=== PATIENT | male | born 1975 | race Two or more races ===

== ENCOUNTER 2018-08-18 01:05 | Inpatient (IN) | payer BC ==
[~2018-08-18] VITALS: Ht 185.4 cm; Wt 106.1 kg
[2018-08-18 01:06] VITALS: Ht 185.4 cm; Wt 106.1 kg
[2018-08-18 01:52] LABS: BASOPHIL % 0.7 % (0-2); PLATELET COUNT 295 x10^3mcL (130-400); RED CELL DISTRIBUTION WIDTH 13.4 % (11.5-14.5)
[2018-08-18 02:01] LABS: CALCIUM 8.7 mg/dL (8.5-10.1); CHLORIDE SERUM 103 mmol/L (98-107); CREATININE SERUM 1.1 mg/dL (0.7-1.3); GFR1 > 60 mL/min; GLUCOSE SERUM 88 mg/dL (74-106); POTASSIUM SERUM 4.3 mmol/L (3.5-5.1); SODIUM SERUM 139 mmol/L (136-145)
[2018-08-18 02:05] LABS: ALBUMIN 3.7 g/dL (3.4-5.0); ALKALINE PHOSPHATASE 43 U/L (46-116); ALT/SGPT 55 U/L (16-63); AST/SGOT 38 U/L (15-37); BILIRUBIN TOTAL 0.31 mg/dL (0.20-1.00); LIPASE 279 IU/L (73-393); TOTAL PROTEIN, SERUM 7.2 g/dL (6.4-8.2)
[2018-08-18 03:31] LABS: microscopic required? NO
[2018-08-18 03:47] LABS: UA SPECIFIC GRAVITY 1.025 (1.005-1.035); urine erythrocyte NEGATIVE (NEGATIVE)
[2018-08-18] MEDS ORDERED: BREO ELLIPTA1 POW IH (05:00)
[2018-08-18] MEDS ORDERED: PROVENTIL0.09 MG/A1 (05:01)
[2018-08-18] MEDS ORDERED: ZANTAC 150150 MG PO (05:01)
[2018-08-18 05:38] VITALS: BP 130/88
[2018-08-18 05:44] LABS: MAGNESIUM 1.9 mg/dL (1.8-2.4); PHOSPHOROUS 2.7 mg/dL (2.5-4.9)
[2018-08-18 05:46] LABS: T3 TOTAL 0.95 ng/mL
[2018-08-18 05:49] LABS: CHOLESTEROL/HDL RATIO 5.8
[2018-08-18 05:51] VITALS: BP 135/88
[2018-08-18 05:57] LABS: FREE T4 1.06 ng/dL (0.76-1.46); FREE THYROXINE INDEX 2.8 ug/dL (1.4-4.5); T4(THYROXINE) 7.8 ug/dL (4.7-13.3)
[2018-08-18 09:07] VITALS: BP 122/91
[2018-08-18 11:31] LABS: AMPHETAMINE QUAL UR NONE DETECTED (See below)
[2018-08-18 13:15] VITALS: BP 134/76
[2018-08-18 16:45] VITALS: BP 130/77
[2018-08-18 20:28] VITALS: BP 124/86
[2018-08-19 04:12] VITALS: BP 124/86
[2018-08-19 05:35] VITALS: BP 146/79
[2018-08-19 06:39] LABS: CALCIUM 8.3 mg/dL (8.5-10.1); CARBON DIOXIDE 24.7 mmol/L (21-32); CHLORIDE SERUM 102 mmol/L (98-107); CREATININE SERUM 0.9 mg/dL (0.7-1.3); GFR1 > 60 mL/min; GLUCOSE SERUM 69 mg/dL (74-106); PHOSPHOROUS 3.6 mg/dL (2.5-4.9); POTASSIUM SERUM 4.2 mmol/L (3.5-5.1); SODIUM SERUM 139 mmol/L (136-145)
[2018-08-19 06:45] LABS: BASOPHIL % 0.4 % (0-2); PLATELET COUNT 230 x10^3mcL (130-400); RED CELL DISTRIBUTION WIDTH 13.4 % (11.5-14.5)
[2018-08-19 09:49] VITALS: BP 149/99
[2018-08-19] MEDS ORDERED: PREDNISONE20 MG PO (11:41)
[2018-08-19] MEDS ORDERED: PRE30 PO (11:41)
[2018-08-19 12:36] VITALS: BP 121/79
[2018-08-19 17:23] VITALS: BP 125/72
[2018-08-19 17:27] VITALS: BP 125/72
== END 2018-08-19 18:50 | disposition home or self-care (01) | DRG 393 ==
LOC: ED 01:05 → DU 04:49
PROVIDERS: Emergency Medicine; Family Medicine; Internal Medicine; ADMIT Internal Medicine
PROC: 0DBB8ZX Excision of Ileum, Via Natural or Artificial Opening Endoscopic, Diagnostic (ICD-10-PCS; 2018-08-19)
PROC: 0DB98ZX Excision of Duodenum, Via Natural or Artificial Opening Endoscopic, Diagnostic (ICD-10-PCS; principal; 2018-08-19 09:00)
PROC: 0DB68ZX Excision of Stomach, Via Natural or Artificial Opening Endoscopic, Diagnostic (ICD-10-PCS; 2018-08-19 09:00)
PROC: 0DBN8ZX Excision of Sigmoid Colon, Via Natural or Artificial Opening Endoscopic, Diagnostic (ICD-10-PCS; 2018-08-19 09:00)
DX: K63.5 Polyp of colon (principal); K29.81 Duodenitis with bleeding; K29.71 Gastritis, unspecified, with bleeding; M62.82 Rhabdomyolysis; K62.5 Hemorrhage of anus and rectum; K62.9 Disease of anus and rectum, unspecified; J45.909 Unspecified asthma, uncomplicated; K21.9 Gastro-esophageal reflux disease without esophagitis; F17.210 Nicotine dependence, cigarettes, uncomplicated; E78.5 Hyperlipidemia, unspecified; F19.10 Other psychoactive substance abuse, uncomplicated; K44.9 Diaphragmatic hernia without obstruction or gangrene; Z80.8 Family history of malignant neoplasm of other organs or systems
CPT/HCPCS: 43235; 45378; 83880; 84439; C9113; J0360; J1200; J1610; J2250; J2270; J2310; J2405; J3010; J3490; J7030; Q0092; Q9966; Q9967